=== PATIENT | male | born 1960 | race American Indian/Alaskan Native ===

== ENCOUNTER 2017-04-17 13:17 | Emergency (ER) | payer MEDICAID, OTHER ==
[2017-04-17 13:51] VITALS: RESP 20
[2017-04-17] MEDS ORDERED: Sodium Chloride 0.9% 1,000 ML IV STA (15:13)
[2017-04-17 15:51] LABS: ALCOHOL SERUM < 10 mg/dl (0-10); ALKALINE PHOSPHATASE 66 U/L (38-126); ALT/SGPT 33 U/L (21-72); AST/SGOT 24 U/L (17-59); BASO # 0.1 K/uL (0.0-0.2); BASO % 0.6 % (0.0-2.0); BILIRUBIN,TOTAL 0.6 mg/dl (0.2-1.3); BLOOD UREA NITROGEN 16 mg/dl (9-20); CALCIUM 9.7 mg/dL (8.4-10.2); CARBON DIOXIDE 27 mmol/L (22-30); CHLORIDE 107 mmol/L (98-107); EOS # 0.1 K/uL (0.0-0.7); EOS % 0.9 % (0.0-4.0); GFR AFRICAN-AMERICAN > 60; GLUCOSE,RANDOM 93 mg/dL (75-110); HEMATOCRIT 39.9 % (35.0-51.0); LIPASE 94 U/L (23-300); LYMPH # 1.7 K/uL (1.0-4.3); LYMPH % 18.7 % (20.0-40.0); MEAN CELL VOLUME 92.1 fl (80.0-94.0); MEAN CORPUSCULAR HEMOGLOBIN 30.9 pg (27.0-31.0); MEAN CORPUSCULAR HGB CONC 33.5 g/dL (33.0-37.0); MEAN PLATELET VOLUME 8.1 fl (7.2-11.7); MONO # 0.7 K/uL (0.0-0.8); NEUT # 6.8 K/uL (1.8-7.0); NEUT % 72.8 % (50.0-75.0); POTASSIUM 4.7 MMOL/L (3.6-5.0); RED CELL DISTRIBUTION WIDTH 13.7 % (11.5-14.5); SODIUM 143 mmol/l (132-148); TOTAL PROTEIN 8.6 G/DL (6.3-8.2); WHITE BLOOD COUNT 9.3 K/uL (4.8-10.8)
[2017-04-17 15:53] LABS: ALB/GLOB RATIO 1.3 (1.0-2.1)
[2017-04-17 16:08] LABS: PARTIAL THROMBOPLASTIN TIME 31.9 Seconds (25.6-37.1)
--- NOTE | 2017-04-17 16:13 | US ---
HISTORY: Upper abdominal pain. COMPARISON: None. TECHNIQUE: Sonographic evaluation of the abdomen. FINDINGS: LIVER: Measures 12.0 cm. Patent portal vein. Portal venous flow: Hepatopetal. Unremarkeable echogenicity of the liver parenchyma. No mass. No intrahepatic bile duct dilatation. GALLBLADDER: Unremarkable. No gallstones. COMMON BILE DUCT: Measures 4.7 mm. No stones. No dilatation. PANCREAS: Unremarkable as visualized. No mass. No ductal dilatation. RIGHT KIDNEY: Measures 5.4 x 11.8cm. Normal echogenicity. No calculus, mass, or hydronephrosis. LEFT KIDNEY: Measures 5.7 x 9.4cm. Normal echogenicity. No calculus, mass, or hydronephrosis. SPLEEN: Normal in size and contour. No mass. AORTA: No aneurysmal dilatation. IVC: Unremarkable. OTHER FINDINGS: None. IMPRESSION: Unremarkable abdominal sonogram.
--- NOTE | 2017-04-17 16:46 | ED PDOC ---
HPI: Abdomen Time Seen by Provider: 04/17/17 14:20 Chief Complaint (Nursing): Abdominal Pain Chief Complaint (Provider): epigastric pain History Per: Patient History/Exam Limitations: no limitations Onset/Duration Of Symptoms: Intermittent Episodes (x1 month), Gradual Current Symptoms Are (Timing): Intermittent Episodes Context: Food Severity: Mild Location Of Pain/Discomfort: RUQ, Epigastric Quality Of Discomfort: Cramping, Burning Associated Symptoms: Nausea, Vomiting, Loss Of Appetite. denies: Diarrhea, Back Pain, Chest Pain Exacerbating Factors: Food Alleviating Factors: None Additional Complaint(s): 57yo male presents c/o epigastric pain mostly after eating, associated w mild nausea and several episodes vomiting over the last month. Denies hemetemesis, melena, BRBPR or fatigue/weakness. Denies fever, radiation of pain or syncope. Past Medical History Reviewed: Historical Data, Nursing Documentation, Vital Signs Vital Signs: Last Vital Signs Temp 96.5 F L 04/17/17 13:48 Pulse 71 04/17/17 13:48 Resp 20 04/17/17 13:48 BP 147/83 04/17/17 13:48 Pulse Ox 95 04/17/17 16:47 - Medical History PMH: No Chronic Diseases - Family History Family History: States: Unknown Family Hx - Living Arrangements Living Arrangements: With Family - Social History Alcohol: None - Home Medications Home Medications: Ambulatory Orders Medication Instructions Recorded Famotidine [Pepcid] 20 mg PO BID #30 tab 02/21/15 Ketorolac Tromethamine [Toradol] 10 mg PO QID #19 tab 06/17/15 Ranitidine HCl [Zantac] 150 mg PO BID #20 tablet 04/17/17 - Allergies Allergies/Adverse Reactions: Allergies Allergy/AdvReac Type Severity Reaction Status Date / Time No Known Allergies Allergy Verified 02/21/15 01:54 Review of Systems Constitutional: Negative for: Sweats Eyes: Negative for: Vision Change ENT: Negative for: Nose Discharge Respiratory: Negative for: Cough Gastrointestinal: Positive for: Nausea, Vomiting, Abdominal Pain. Negative for : Diarrhea Genitourinary Male: Negative for: Dysuria, Incontinence Musculoskeletal: Negative for: Neck Pain Skin: Negative for: Rash, Lesions Neurological: Negative for: Weakness, Numbness Physical Exam - Reviewed Nursing Documentation Reviewed: Yes Vital Signs Reviewed: Yes - Physical Exam Appears: Positive for: Well, Non-toxic, No Acute Distress Head Exam: Positive for: ATRAUMATIC, NORMAL INSPECTION, NORMOCEPHALIC Skin: Positive for: Normal Color, Warm, DRY Eye Exam: Positive for: EOMI, Normal appearance, PERRL ENT: Positive for: Normal ENT Inspection Neck: Positive for: Normal, Painless ROM Cardiovascular/Chest: Positive for: Regular Rate, Rhythm Respiratory: Positive for: CNT, Normal Breath Sounds Gastrointestinal/Abdominal: Positive for: Bowel Sounds, Soft, Tenderness (mild epigastric tenderness). Negative for: Guarding, Rebound Back: Positive for: Normal Inspection Extremity: Positive for: Normal ROM Neurologic/Psych: Positive for: Alert, Oriented. Negative for: Motor/Sensory Deficits - Laboratory Results Result Diagrams: 04/17/17 15:38 04/17/17 15:38 - ECG O2 Sat by Pulse Oximetry: 95 Medical Decision Making Medical Decision Making: workup for epigastric pain initiated US abd and bloodwork, pepcid, IVF ordered US report reviewed, unremarkable normal aorta and GB labs unremarkable including LFTS and lipase Rx zantac, followup GI for definitive therapy/testing. Disposition - Clinical Impression Clinical Impression: Epigastric pain - Patient ED Disposition Is Patient to be Admitted: No Counseled Patient/Family Regarding: Studies Performed, Diagnosis, Need For Followup, Rx Given - Disposition Referrals: Zay Mccormack MD [Staff Provider] - Disposition: Routine/Home Disposition Time: 16:15 Condition: STABLE Additional Instructions: Followup with GI specialist for further testing. Return to ER for any worse or new symptoms. Prescriptions: Ranitidine HCl [Zantac] 150 mg PO BID #20 tablet Instructions: Epigastric Pain (ED) Forms: [employer] (Citizen Of [place])
[2017-04-17 17:01] VITALS: BP 120/70; PULSE 72; TEMP 98; O2SAT 98
== END 2017-04-17 17:02 | disposition home or self-care (01) ==
LOC: H.ER 13:17
DX: R10.13 Epigastric pain (principal); R11.10 Vomiting, unspecified
CPT/HCPCS: 76700; 80053; 80320; 83690; 85025; 85610; 85730; 96360; 99283; J2405; J7040

== ENCOUNTER 2017-09-02 15:13 | Emergency (ER) | payer MEDICAID, OTHER ==
[2017-09-02 15:21] VITALS: BP 123/77; PULSE 66; RESP 20; TEMP 98; O2SAT 98
--- NOTE | 2017-09-02 15:45 | ED PDOC ---
Upper Extremity Pain/Injury Time Seen by Provider: 09/02/17 15:19 Chief Complaint (Nursing): Abnormal Skin Integrity Chief Complaint (Provider): Abnormal Skin Integrity History Per: Patient History/Exam Limitations: no limitations Current Symptoms Are (Timing): Still Present Additional Complaint(s): 57 y/o male presents to the ED complaining of irritation of right elbow since 3- 4 days. States that he hit his elbow one week ago but did not experience pain at that time. Denies decreased ROM, numbness, joint pain, fever, redness or any further medical complaints. Past Medical History Reviewed: Historical Data, Nursing Documentation, Vital Signs Vital Signs: Last Vital Signs Temp 98 F 09/02/17 15:18 Pulse 66 09/02/17 15:18 Resp 20 09/02/17 15:18 BP 123/77 09/02/17 15:18 Pulse Ox 98 09/02/17 15:18 - Medical History PMH: No Chronic Diseases - Surgical History Other surgeries: Head surgery - Family History Family History: States: Unknown Family Hx - Social History Current smoker - smoking cessation education provided: Yes (Current Some Days Smoker) Alcohol: Other (Yes) Drugs: Other (Yes) - Home Medications Home Medications: Ambulatory Orders Medication Instructions Recorded Famotidine [Pepcid] 20 mg PO BID #30 tab 02/21/15 Ketorolac Tromethamine [Toradol] 10 mg PO QID #19 tab 06/17/15 Ranitidine HCl [Zantac] 150 mg PO BID #20 tablet 04/17/17 - Allergies Allergies/Adverse Reactions: Allergies Allergy/AdvReac Type Severity Reaction Status Date / Time No Known Allergies Allergy Verified 09/02/17 15:18 Review of Systems ROS Statement: Except As Marked, All Systems Reviewed And Found Negative (As per HPi, otherwise negative) Skin: Positive for: Other (Irritation of right elbow) Physical Exam - Physical Exam Comments: GENERAL APPEARANCE: Patient is awake, alert, oriented x 3, in no acute distress. SKIN: Warm, dry; (-) cyanosis. LOWER EXTREMITY: Elbow: (+) edema to the olecranon process of the right elbow, ( -) erythema, (+) full ROM, cap refill < 2 seconds CARDIOVASCULAR: (+) distal pulse. NEUROLOGIC: (+) distal sensation. - ECG O2 Sat by Pulse Oximetry: 98 (RA) Pulse Ox Interpretation: Normal Medical Decision Making Medical Decision Making: Time: 15:45 Initial Impression: Burisitis consider contusion Plan: Isaac bandage -Patient advised to rest,ice, wear isaac wrap for comfort. - Advised to follow up with primary care physician in 1-2 days without fail. Advised to take over the counter NSAIDs. Return to the emergency room at any time for any new or worsening symptoms. Patient states he fully agrees with and understands discharge instructions. States that he agrees with the plan and disposition. Verbalized and repeated discharge instructions and plan. I have given the patient opportunity to ask any additional questions. Scribe Attestation: Documented by Jeanmarie Patel acting as a scribe for SHELL Abbasi PA-C. Scribe Attestation: All medical record entries made by the Scribe were at my direction and personally dictated by me. I have reviewed the chart and agree that the record accurately reflects my personal performance of the history, physical exam, medical decision making, and the department course for this patient. I have also personally directed, reviewed, and agree with the discharge instructions and disposition. Disposition - Clinical Impression Clinical Impression: Contusion of right elbow, Bursitis - Patient ED Disposition Is Patient to be Admitted: No Counseled Patient/Family Regarding: Diagnosis, Need For Followup - Disposition Disposition: Routine/Home Disposition Time: 15:35 Condition: STABLE Additional Instructions: Thank you for letting us take care of you today. You were treated for right elbow contusion, bursitis. The emergency medical care you received today was directed at your acute symptoms. Rest, ice and keep your right elbow with Isaac wrap. It may take several days for your symptoms to resolve. Return to the Emergency Department if your symptoms worsen, do not improve, or if you have any other problems. Please contact your doctor in 2 days for re-evaluation and follow up. Bring any paperwork you were given at discharge with you along with any medications you are taking to your follow up visit. Our treatment cannot replace ongoing medical care by a primary care provider (PCP) outside of the emergency department. Thank you for allowing the [facility] team to be part of your care today. Instructions: Bursitis (DC), Contusion (DC) Forms: [employer] ([place]ian) - PA / ANIMATION PRODUCER / Resident Statement MD/DO has reviewed & agrees with the documentation as recorded.
== END 2017-09-02 16:10 | disposition home or self-care (01) ==
LOC: H.ER 15:13
DX: S50.01XA Contusion of right elbow, initial encounter (principal); Y92.89 Other specified places as the place of occurrence of the external cause; M70.22 Olecranon bursitis, left elbow; F17.200 Nicotine dependence, unspecified, uncomplicated

== ENCOUNTER 2017-11-04 08:16 | Emergency (ER) | payer OTHER ==
[2017-11-04 08:19] VITALS: BMI 24.3
[2017-11-04 08:21] VITALS: BP 117/74; PULSE 91; RESP 16; TEMP 98.2; O2SAT 98
--- NOTE | 2017-11-04 09:32 | ED PDOC ---
Lower Extremity Pain/Injury Time Seen by Provider: 11/04/17 08:39 Chief Complaint (Nursing): Lower Extremity Problem/Injury Chief Complaint (Provider): Leg injury History Per: Patient History/Exam Limitations: no limitations Onset/Duration Of Symptoms: Days (Yesterday) Current Symptoms Are (Timing): Still Present Additional Complaint(s): Pt. accidentally got left leg go into a whole and he twisted his back. No injury to the head, chest, abd, neck. Denies any numbness, tingles, weakness, incontinence, constipation. Has pain to the left calf and right lower back. Ambulates with the pain. Past Medical History Reviewed: Nursing Documentation, Vital Signs Vital Signs: Last Vital Signs Temp 98.2 F 11/04/17 08:21 Pulse 91 H 11/04/17 08:21 Resp 16 11/04/17 08:21 BP 117/74 11/04/17 08:21 Pulse Ox 98 11/04/17 08:21 - Medical History PMH: No Chronic Diseases - Surgical History Surgical History: No Surg Hx - Family History Family History: States: Unknown Family Hx - Home Medications Home Medications: Ambulatory Orders Medication Instructions Recorded Famotidine [Pepcid] 20 mg PO BID #30 tab 02/21/15 Ketorolac Tromethamine [Toradol] 10 mg PO QID #19 tab 06/17/15 Ranitidine HCl [Zantac] 150 mg PO BID #20 tablet 04/17/17 Ibuprofen [Motrin] 600 mg PO TID 7 Days tab 11/04/17 - Allergies Allergies/Adverse Reactions: Allergies Allergy/AdvReac Type Severity Reaction Status Date / Time No Known Allergies Allergy Verified 09/02/17 15:18 Review of Systems ROS Statement: Except As Marked, All Systems Reviewed And Found Negative Musculoskeletal: Positive for: Back Pain, Leg Pain Physical Exam - Reviewed Nursing Documentation Reviewed: Yes Vital Signs Reviewed: Yes - Physical Exam Appears: Positive for: Non-toxic, No Acute Distress Head Exam: Positive for: ATRAUMATIC, NORMAL INSPECTION, NORMOCEPHALIC Skin: Positive for: Normal Color, Warm, DRY Eye Exam: Positive for: Normal appearance, EOMI, PERRL ENT: Positive for: Normal ENT Inspection Neck: Positive for: Normal, Painless ROM Cardiovascular/Chest: Positive for: Regular Rate, Rhythm Respiratory: Positive for: CNT, Normal Breath Sounds Gastrointestinal/Abdominal: Positive for: Normal Exam, Soft. Negative for: Tenderness Back: Positive for: Other (mild tender right lower; straight leg b/l neg) Extremity: Positive for: Normal ROM, Tenderness (mild left medial calf). Negative for: Pedal Edema, Capillary Refill, Deformity, Swelling Neurologic/Psych: Positive for: Alert, Oriented - ECG O2 Sat by Pulse Oximetry: 98 - Radiology X-Ray: Read By Radiologist X-Ray Interpretation: No Acute Disease - Progress ED Course And Treament: 1056: Pt. stable. AAOx3. Tolerated PO. Pain free. Ambulated with no issues. Disposition - Clinical Impression Clinical Impression: Back pain, Leg pain - Patient ED Disposition Is Patient to be Admitted: No Counseled Patient/Family Regarding: Studies Performed, Diagnosis, Need For Followup, Rx Given - Disposition Referrals: [facility] [Outside] - 11/05/17 Disposition: Routine/Home Disposition Time: 10:57 Condition: STABLE Additional Instructions: Return if not better in 3 days. Prescriptions: Ibuprofen [Motrin] 600 mg PO TID 7 Days tab Instructions: Muscle Strain, Low Back Pain in Adults Forms: [employer] (German), [facility] ED School/Work Excuse
--- NOTE | 2017-11-04 10:29 | RAD ---
PROCEDURE: LEFT TIBIA AND FIBULA RADIOGRAPHS HISTORY: fall and injury with pain COMPARISON: None. TECHNIQUE: Multiple views of the left tibia-fibula submitted. FINDINGS: No acute fracture or destructive bony lesion appreciated. No suspicious soft tissue abnormality identified throughout. No apparent subluxation or dislocation of left knee or ankle. IMPRESSION: Unremarkable left tibia-fibula radiographs.
--- NOTE | 2017-11-04 10:33 | RAD ---
PROCEDURE: Radiographs of the Lumbar Spine. HISTORY: back pain COMPARISON: No prior. FINDINGS: BONES: Normal alignment. No listhesis. No fracture. No destructive bony lesion appreciable. DISC SPACES: Mild but diffuse spondylosis throughout the lumbar spine. No spondylolysis although facet joint arthropathy is moderate at the inferior lumbar levels. OTHER FINDINGS: None. 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 Moderate multilevel facet joint arthropathy at the inferior lumbar spine. No acute fracture or spondylolisthesis appreciated.
== END 2017-11-04 11:23 | disposition home or self-care (01) ==
LOC: H.ER 08:16
DX: M79.605 Pain in left leg (principal); M54.9 Dorsalgia, unspecified; M51.36 Other intervertebral disc degeneration, lumbar region